=== PATIENT | female | born 1960 | race Caucasian/White ===

== ENCOUNTER 2019-04-21 12:21 | Observation (INO) | payer BC, OTHER ==
[~2019-04-21] VITALS: Ht 162.6 cm; Wt 60.0 kg
[2019-04-21] MEDS ORDERED: SODIUM CHLORIDE 0.9% 1000ML 1,000 ML IV STA ×2 (12:44→14:12)
[2019-04-21] MEDS ORDERED: MORPHINE SULFATE INJ 4 MG/ML INJ 1ML IV STA (12:44)
[2019-04-21] MEDS ORDERED: CEFTRIAXONE SOD 1 GM/NS 50 ML 50 ML IV STA (12:44)
[2019-04-21] MEDS ORDERED: ONDANSETRON HCL INJ 2MG/ML 2ML 2 MG/ML VIAL IV STA (12:44)
[2019-04-21 13:34] LABS: BASOPHILS % 0.2 % (0.0-1.0); EOSINOPHILS % 0.2 % (0.0-6.0); HEMATOCRIT 37.9 % (34.2-44.1); HEMOGLOBIN 12.5 g/dL (12.0-16.0); LYMPHOCYTES # (AUTO) 1.1 (1.0-3.2); LYMPHOCYTES % 6.2 % (18.0-39.1); MEAN CORPUSCULAR HEMOGLOBIN 30.3 pg (28-32); MONOCYTES # (AUTO) 1.1 (0.2-0.8); MONOCYTES % 6.5 % (4.4-11.3); NEUTROPHILS # (AUTO) 14.6 (2.1-6.9); NEUTROPHILS % 86.6 % (38.7-80.0); PLATELET COUNT 283 x10e3/uL (140-360); RED BLOOD COUNT 4.12 x10e6/uL (3.6-5.1); RED CELL DISTRIBUTION WIDTH 12.8 % (11.7-14.4)
[2019-04-21 13:38] LABS: BILIRUBIN,URINE NEGATIVE (NEGATIVE); CLARITY,URINE SL CLOUDY (CLEAR); COLOR,URINE YELLOW (YELLOW); LEUKOCYTE ESTERASE ,URINE LARGE (NEGATIVE); NITRITE,URINE POSITIVE (NEGATIVE); PROTEIN,URINE DIPSTICK 2+ (NEGATIVE); URINE UROBILINOGEN 0.2 mg/dL (0.2 - 1)
[2019-04-21 13:44] LABS: KETONES,URINE 2+ (NEGATIVE)
[2019-04-21 13:51] LABS: BACTERIA,URINE MANY /HPF
[2019-04-21 13:52] LABS: ALANINE AMINOTRANSFERASE 11 IU/L (0-55); ALBUMIN 4.2 g/dL (3.5-5.0); ALBUMIN/GLOBULIN RATIO 1.4 (0.8-2.0); ALKALINE PHOSPHATASE 68 IU/L (40-150); ANION GAP 10.6 mmol/L (8-16); BLOOD UREA NITROGEN 9 mg/dL (7-26); BUN/CREATININE RATIO 14 (6-25); CALCIUM 9.3 mg/dL (8.4-10.2); CARBON DIOXIDE 27 mmol/L (22-29); CHLORIDE 99 mmol/L (98-107); CREATININE, SERUM 0.65 mg/dL (0.57-1.11); EST GLOMERULAR FILTRATION RATE > 60 ML/MIN (60-); GLUCOSE 101 mg/dL (74-118); POTASSIUM 3.6 mmol/L (3.5-5.1); SODIUM 133 mmol/L (136-145)
--- NOTE | 2019-04-21 14:00 | Diagnostic Imaging Report ---
EXAMINATION: CT of the abdomen and pelvis without contrast. TECHNIQUE: Spiral CT images of the abdomen and pelvis were performed from the lung bases to the lesser trochanters. No intravenous contrast was given per renal stone protocol. Coronal and sagittal reformatted images were obtained. COMPARISON: None. CLINICAL HISTORY:UTI DISCUSSION: ABSENCE OF INTRAVENOUS CONTRAST DECREASES SENSITIVITY FOR DETECTION OF FOCAL LESIONS AND VASCULAR PATHOLOGY. ABDOMEN/PELVIS: LOWER THORAX: Unremarkable. HEPATOBILIARY:1.1 and 1.3 cm hypoattenuating lesions in segment 8, average internal attenuation 10-15 Hounsfield units, compatible with simple cysts. Similar lesion in segment 7. Additional subcentimeter hypoattenuating foci scattered throughout the right and left lobes, too small to further characterize but likely to represent additional small cysts. SPLEEN: No splenomegaly. PANCREAS: No focal masses or ductal dilatation. ADRENALS: No adrenal nodules. KIDNEYS/URETERS: Malrotated right kidney. No renal calculi. No ureteral calculi or hydronephrosis. No gross mass lesion though evaluation is limited without intravenous contrast. PELVIC ORGANS/BLADDER: The urinary bladder is incompletely distended but otherwise unremarkable. No adnexal mass. PERITONEUM/RETROPERITONEUM: No free air or fluid. LYMPH NODES: No pelvic sidewall, retroperitoneal, or mesenteric lymphadenopathy. VESSELS: Limited evaluation without intravenous contrast. The abdominal aorta is nonaneurysmal. GI TRACT: Scattered diverticula along the descending and sigmoid colon without wall thickening or adjacent inflammatory change. The appendix is not definitively identified. No right lower quadrant inflammatory change. No small bowel dilatation to suggest obstruction. BONES AND SOFT TISSUES: No osseous destructive lesions. Nonaggressive appearing sclerotic focus in the left iliac wing which may represent a bone island/osteoma. No focal soft tissue abnormalities. IMPRESSION: No acute intra-abdominal or pelvic CT abnormalities. No urolithiasis. Large bowel diverticulosis without evidence of diverticulitis. Signed by: Dr. Juliano Bowser M.D. on 04/21/2019 1:57 PM
[2019-04-21] MEDS ORDERED: KETOROLAC TROMETHAMINE 30 MG/ML VIAL IV ONE (14:12)
[2019-04-21] MEDS: PHENAZOPYRIDINE HCL 100 MG TAB PO SCH (14:28)
[2019-04-21 15:00] LABS: BASOPHILS # (AUTO) 0.1 (0.0-0.1); BASOPHILS % 0.3 % (0.0-1.0); HEMATOCRIT 36.1 % (34.2-44.1); HEMOGLOBIN 11.8 g/dL (12.0-16.0); LYMPHOCYTES % 5.6 % (18.0-39.1); MEAN CORPUSCULAR HEMOGLOBIN 30.4 pg (28-32); MEAN CORPUSCULAR HGB CONC 32.7 g/dL (31-35); MONOCYTES # (AUTO) 1.2 (0.2-0.8); NEUTROPHILS # (AUTO) 14.8 (2.1-6.9); NEUTROPHILS % 86.7 % (38.7-80.0); PLATELET COUNT 223 x10e3/uL (140-360); RED BLOOD COUNT 3.88 x10e6/uL (3.6-5.1); RED CELL DISTRIBUTION WIDTH 12.9 % (11.7-14.4)
--- OUTSIDE RECORDS SUMMARY | 2019-04-21 16:15 | XMS REPORT ---
Author Author [facility] Address Unknown Phone Unavailable Care Team Providers Care Food Inspector Name Role Phone Juan CARRANZA Unavailable Unavailable Problems This patient has no known problems. Allergies, Adverse Reactions, Alerts This patient has no known allergies or adverse reactions. Medications This patient has no known medications. Results Test Description Test Time Test Comments Text Results Atomic Results Result Comments CT ABDOMEN/PELVIS WO 2019-04-21 13:48:00 [place] [address] Patient Name: CAROLE MAST MR #: [id number] : 1960 Age/Sex: 58/F Req #: [id number] Adm Physician: Ordered by: LORIN WARE NP Report #: [id number] Location: ER Room/Bed: Procedure: CT/CT ABDOMEN/PELVIS WO Exam Date: 04/21/19 Exam Time: 1310 REPORT STATUS: Signed EXAMINATION: CT of the abdomen and pelvis without contrast. TECHNIQUE: Spiral CT images of the abdomen and pelvis were performed from the lung bases to the lesser trochanters. No intravenous contrast was given per renal stone protocol. Coronal and sagittal reformatted images were obtained. COMPARISON: None. CLINICAL HISTORY:UTI DISCUSSION: ABSENCE OF INTRAVENOUS CONTRAST DECREASES SENSITIVITY FOR DETECTION OF FOCAL LESIONS AND VASCULAR PATHOLOGY. ABDOMEN/PELVIS: LOWER THORAX: Unremarkable. HEPATOBILIARY:1.1 and 1.3 cm hypoattenuating lesions in segment 8, average internal attenuation 10-15 Hounsfield units, compatible with simple cysts. Similar lesion in segment 7. Additional subcentimeter hypoattenuating foci scattered throughout the right and left lobes, too small to further characterize but likely to represent additional small cysts. SPLEEN: No splenomegaly. PANCREAS: No focal masses or ductal dilatation. ADRENALS: No adrenal nodules. KIDNEYS/URETERS: Malrotated right kidney. No renal calculi. No ureteral calculi or hydronephrosis. No gross mass lesion though evaluation is limited without intravenous contrast. PELVIC ORGANS/BLADDER: The urinary bladder is incompletely distended but otherwise unremarkable. No adnexal mass. PERITONEUM/RETROPERITONEUM: No free air or fluid. LYMPH NODES: No pelvic sidewall, retroperitoneal, or mesenteric ly mphadenopathy. VESSELS: Limited evaluation without intravenous contrast. The abdominal aorta is nonaneurysmal. GI TRACT: Scattered diverticula along the descending and sigmoid colon without wall thickening or adjacent inflammatory change. The appendix is not definitively identified. No right lower quadrant inflammatory change. No small bowel dilatation to suggest obstruction. BONES AND SOFT TISSUES: No osseous destructive lesions. Nonaggressive appearing sclerotic focus in the left iliac wing which may represent a bone island/osteoma. No focal soft tissue abnormalities. IMPRESSION: No acute intra-abdominal or pelvic CT abnormalities. No urolithiasis. Large bowel diverticulosis without evidence of diverticulitis. Signed by: Dr. Tin Claros M.D. on 04/21/2019 1:57 PM Dictated By: TIN CLAROS MD [id number] Transcribed By: KARINA on 04/21/19 1358 COPY TO: LORIN WARE NP
[2019-04-21] MEDS: SODIUM CHLORIDE 0.9% 1000ML 1,000 ML IV SCH ×2 (16:50→21:49)
[2019-04-21] MEDS ORDERED: ONDANSETRON HCL INJ 2MG/ML 2ML 2 MG/ML VIAL IV PRN (19:30)
[2019-04-21] MEDS ORDERED: MORPHINE SULFATE 2 MG/ML SYR 1ML IV PRN (19:30)
[2019-04-21] MEDS ORDERED: MORPHINE SULFATE INJ 4 MG/ML INJ 1ML IV PRN (19:45)
[2019-04-21 19:50] VITALS: BP 91/57
[2019-04-21 19:52] VITALS: BP 91/57
[2019-04-21 20:00] VITALS: BP 100/58
[2019-04-22] VITALS (8 sets, daily range): BP systolic 89–130; BP diastolic 54–68
[2019-04-22 06:10] LABS: BASOPHILS # (AUTO) 0.1 (0.0-0.1); BASOPHILS % 0.6 % (0.0-1.0); EOSINOPHILS # (AUTO) 0.1 (0.0-0.4); EOSINOPHILS % 1.3 % (0.0-6.0); HEMATOCRIT 32.3 % (34.2-44.1); LYMPHOCYTES % 24.7 % (18.0-39.1); MEAN CORPUSCULAR HEMOGLOBIN 29.9 pg (28-32); MEAN CORPUSCULAR HGB CONC 31.3 g/dL (31-35); MEAN CORPUSCULAR VOLUME 95.6 fL (81-99); MONOCYTES % 12.4 % (4.4-11.3); NEUTROPHILS # (AUTO) 4.8 (2.1-6.9); NEUTROPHILS % 60.7 % (38.7-80.0); PLATELET COUNT 221 x10e3/uL (140-360); RED BLOOD COUNT 3.38 x10e6/uL (3.6-5.1)
[2019-04-22 06:15] LABS: HEMOGLOBIN 10.1 g/dL (12.0-16.0)
[2019-04-22 06:42] LABS: ANION GAP 8.1 mmol/L (8-16); BLOOD UREA NITROGEN 8 mg/dL (7-26); BUN/CREATININE RATIO 15 (6-25); CALCIUM 8.2 mg/dL (8.4-10.2); CARBON DIOXIDE 25 mmol/L (22-29); CHLORIDE 112 mmol/L (98-107); CREATININE, SERUM 0.55 mg/dL (0.57-1.11); EST GLOMERULAR FILTRATION RATE > 60 ML/MIN (60-); GLUCOSE 99 mg/dL (74-118); POTASSIUM 4.1 mmol/L (3.5-5.1); SODIUM 141 mmol/L (136-145)
--- NOTE | 2019-04-22 06:50 | NUR ---
rounded with overnight cashier nurse, patient aware of change and in no distress. call salmon within reach and bed in lowest position.
[2019-04-22 07:04] LABS: CHOL/HDL RATIO 2.6 (3.0-3.6); MAGNESIUM 2.1 MG/DL (1.3-2.1); PHOSPHORUS 3.1 MG/DL (2.3-4.7)
[2019-04-22 07:26] LABS: THYROID STIMULATING HORMONE 2.265 uIU/mL (0.350-4.940)
[2019-04-22] MEDS ORDERED: CEFTRIAXONE SOD 1 GM/NS 50 ML 50 ML IV SCH (09:00)
[2019-04-22] MEDS: SODIUM CHLORIDE 0.9% 1000ML 1,000 ML IV SCH ×3 (09:00→21:02)
[2019-04-22] MEDS: PHENAZOPYRIDINE HCL 100 MG TAB PO SCH ×3 (09:00→17:45)
[2019-04-22] MEDS ORDERED: ONDANSETRON HCL 4 MG ORAL DISINTEGRATING TAB PO PRN (13:00)
--- NOTE | 2019-04-22 18:45 | NUR ---
rounded with overnight associate nurse, patient aware of change and in no distress with friends at bedside. call salmon within reach and bed in lowest position.
[2019-04-23] VITALS: BP 105/64
[2019-04-23 01:49] LABS: BASOPHILS % 0.5 % (0.0-1.0); EOSINOPHILS # (AUTO) 0.1 (0.0-0.4); EOSINOPHILS % 1.8 % (0.0-6.0); HEMATOCRIT 29.4 % (34.2-44.1); HEMOGLOBIN 9.6 g/dL (12.0-16.0); LYMPHOCYTES # (AUTO) 2.7 (1.0-3.2); MEAN CORPUSCULAR HEMOGLOBIN 30.8 pg (28-32); MEAN CORPUSCULAR HGB CONC 32.7 g/dL (31-35); MEAN CORPUSCULAR VOLUME 94.2 fL (81-99); MONOCYTES # (AUTO) 0.6 (0.2-0.8); MONOCYTES % 9.6 % (4.4-11.3); NEUTROPHILS # (AUTO) 3.1 (2.1-6.9); NEUTROPHILS % 46.8 % (38.7-80.0); PLATELET COUNT 125 x10e3/uL (140-360); RED BLOOD COUNT 3.12 x10e6/uL (3.6-5.1); RED CELL DISTRIBUTION WIDTH 13.1 % (11.7-14.4)
[2019-04-23 02:04] LABS: ANION GAP 8.9 mmol/L (8-16); BLOOD UREA NITROGEN 5 mg/dL (7-26); BUN/CREATININE RATIO 9 (6-25); CALCIUM 8.4 mg/dL (8.4-10.2); CARBON DIOXIDE 24 mmol/L (22-29); CHLORIDE 112 mmol/L (98-107); CREATININE, SERUM 0.57 mg/dL (0.57-1.11); EST GLOMERULAR FILTRATION RATE > 60 ML/MIN (60-); GLUCOSE 91 mg/dL (74-118); POTASSIUM 3.9 mmol/L (3.5-5.1); SODIUM 141 mmol/L (136-145)
[2019-04-23 04:00] VITALS: BP 102/59
[2019-04-23] MEDS ORDERED: MEROPENEM 1GM 100 ML IV SCH (09:00)
[2019-04-23 10:03] VITALS: BP 105/58
[2019-04-23] MEDS: PHENAZOPYRIDINE HCL 100 MG TAB PO SCH ×2 (11:36→13:00)
[2019-04-23 11:50] VITALS: BP 110/70
[2019-04-23 12:43] VITALS: BP 110/70
[2019-04-23] MEDS ORDERED: LEVAQUIN500 MG PO (12:46)
--- NOTE | 2019-04-24 06:15 | Discharge Summary ---
HISTORY OF PRESENT ILLNESS: Ms. Krishnamurthy is a 58-year-old female, who began having right CVA tenderness, dysuria, frequency, nausea, on Friday night took azo. On Friday morning, stayed home from work, then Friday she went to [facility] due to the back pain and was sent to the emergency department. PAST MEDICAL HISTORY: Includes hypotension, migraines, and hypoglycemia. PAST SURGICAL HISTORY: Significant for tubal ligation, bladder suspension, and hysterectomy. FAMILY HISTORY: Father and mother both have heart problems. SOCIAL HISTORY: She denies history of illicit drug use or tobacco use. She drinks wine socially. She lives with her . She owns her own business. ALLERGIES: SHE IS ALLERGIC TO IODINE. ADMITTING DIAGNOSES: Include: 1. Acute urinary tract infection, present on arrival with pyelonephritis. 2. Sepsis with urinary tract infection. 3. Acute right flank pain. 4. Chronic hypotension. 5. Nausea. DISCHARGE DIAGNOSES: Include: 1. Acute ESBL E coli urinary tract infection, present on arrival with pyelonephritis. 2. Sepsis with aforementioned urinary tract infection. 3. Acute right flank pain. 4. Chronic hypotension. 5. Nausea. 6. Diverticulosis. LABORATORY DATA: On admission, sodium 133, potassium 3.6, chloride 99, CO2 of 27, BUN 9, creatinine 0.65, and glucose 101. WBC 17.1, hemoglobin 11.8, hematocrit 36.1, platelets 223, and neutrophils 86.7. Urinalysis showed 2+ protein, 2+ ketones, positive for nitrites, RBC 6-10, WBCs 11-20, many bacteria. The CT of the abdomen and pelvis showed no acute intraabdominal or pelvic CT abnormalities. There is large bowel diverticulosis without evidence of diverticulitis. The patient substantially improved with IV fluids and IV antibiotics. She was on IV Rocephin prior to the final results of the urine culture being reported. The final results were reported at 0715 on 04/23/2019, which showed multidrug resistant organism that was resistant to Rocephin, sensitive to Merrem and Levaquin. The patient was switched to IV Merrem 1 g IV every 8 hours on 04/23/2019. Case was discussed with Dr. Lindsay. The patient could be discharged to home on p.o. Levaquin today per the sensitivity shows sensitivity less than or equal to 2. We will continue her home medications, sent her home on a cardiac diet. Activity level as tolerated. Follow up with PCP in 1 to 2 weeks. The patient will be provided prescription for Levaquin 500 mg p.o. daily for 14 days. Dictated by Clarence Wiley NP MD TUNG Smith/KUMAR /[id number]
== END 2019-04-23 13:35 | disposition home or self-care (01) ==
LOC: ER 12:21 → ERHOLD 16:12 → IMCU 19:35 → OBSVTOIN 04-23 10:45 → INTOOBSV 04-23 10:45
PROVIDERS: ADMIT Internal Medicine; ATTEND Internal Medicine
DX: A41.9 Sepsis, unspecified organism (principal); N10 Acute pyelonephritis; G43.909 Migraine, unspecified, not intractable, without status migrainosus; E16.2 Hypoglycemia, unspecified; Z82.49 Family history of ischemic heart disease and other diseases of the circulatory system; E03.9 Hypothyroidism, unspecified; R11.0 Nausea; K57.30 Diverticulosis of large intestine without perforation or abscess without bleeding; B96.20 Unspecified Escherichia coli [E. coli] as the cause of diseases classified elsewhere; Z16.12 Extended spectrum beta lactamase (ESBL) resistance
CPT/HCPCS: 36415 ×3; 74176; 80048 ×2; 80053; 80061; 81001; 83036; 83735; 84100; 84443; 85025 ×3; 87086; 87186; 99284; G0378 ×3; J0696 ×2; J1885; J2185; J2270 ×2; J2405; J7030 ×2